=== PATIENT | female | born 1980 ===

== ENCOUNTER 2017-04-06 05:26 | Emergency (ER) | payer MEDICAID, OTHER ==
--- NOTE | 2017-04-06 06:14 | C.PDOC ---
Time Seen by Provider: 04/06/17 05:47 Chief Complaint (Nursing): Lower Extremity Problem/Injury Past Medical History Vital Signs: Last Vital Signs Temp 97.4 F L 04/06/17 05:31 Pulse 79 04/06/17 05:31 Resp 18 04/06/17 05:31 BP 104/67 04/06/17 05:31 Pulse Ox 98 04/06/17 05:31 - Social History Hx Alcohol Use: No Hx Substance Use: No - Immunization History Hx Tetanus Toxoid Vaccination: No Hx Influenza Vaccination: No Hx Pneumococcal Vaccination: No ED Course And Treatment O2 Sat by Pulse Oximetry: 98 Disposition - Disposition
--- NOTE | 2017-04-06 06:16 | C.PDOC ---
History Of Present Illness 36 y/o female presents to ED with complaints of left lower leg lump since 5 days ago. Patient states she has been applying warm compress to the lump for 3 days. Patient denies fever, chills, nausea, vomiting, change in sensation or any other complaints at this time. Time Seen by Provider: 04/06/17 05:47 Chief Complaint (Nursing): Lower Extremity Problem/Injury History Per: Patient History/Exam Limitations: no limitations Onset/Duration Of Symptoms: Days Current Symptoms Are (Timing): Still Present Pain Scale Rating Of: 6 Past Medical History Reviewed: Historical Data, Nursing Documentation, Vital Signs Vital Signs: Last Vital Signs Temp 97.4 F L 04/06/17 05:31 Pulse 79 04/06/17 05:31 Resp 18 04/06/17 05:31 BP 104/67 04/06/17 05:31 Pulse Ox 98 04/06/17 06:48 - Medical History PMH: No Chronic Diseases Surgical History: No Surg Hx Family History: States: No Known Family Hx - Social History Hx Alcohol Use: No Hx Substance Use: No - Immunization History Hx Tetanus Toxoid Vaccination: No Hx Influenza Vaccination: No Hx Pneumococcal Vaccination: No Review Of Systems Except As Marked, All Systems Reviewed And Found Negative. Constitutional: Negative for: Fever, Chills Gastrointestinal: Negative for: Nausea, Vomiting Musculoskeletal: Positive for: Leg Pain Skin: Negative for: Rash Neurological: Negative for: Weakness, Numbness Physical Exam - Physical Exam Appears: Non-toxic Skin: Warm, Dry, Other (1.5cm abscess (+)mild surrounding erythema. (-) flunctuance ) Head: Normacephalic Oral Mucosa: Moist Neck: Normal ROM, Supple Cardiovascular: Rhythm Regular Respiratory: Normal Breath Sounds, No Rales, No Rhonchi, No Wheezing Gastrointestinal/Abdominal: Soft, No Tenderness, No Guarding, No Rebound Extremity: Tenderness (Left lower leg), Capillary Refill (<2 seconds), Swelling Extremity: Bilateral: Normal ROM Pulses: Left Dorsalis Pedis: Normal, Right Dorsalis Pedis: Normal Neurological/Psych: Oriented x3, Normal Motor, Normal Sensation ED Course And Treatment O2 Sat by Pulse Oximetry: 98 (RA) Pulse Ox Interpretation: Normal Disposition - Disposition Referrals: Cuauhtemoc Moore MD [Medical Doctor] - Disposition: HOME/ ROUTINE Disposition Time: 06:45 Condition: GOOD Additional Instructions: APPLY WARM COMPRESSES TO THE AREA 4-5 TIMES PER DAY. Follow up with the medical doctor within 1-2 days. Return if worsened. Prescriptions: Doxycycline Hyclate 100 mg PO BID #19 cap Ibuprofen [Motrin] 600 mg PO TID #21 tab Instructions: Abscess (ED) Forms: [employer] (Syriac), Work Excuse Print Language: NAMIBIAN - Clinical Impression Clinical Impression: Abscess - PA / RN FIELD / Resident Statement MD/DO has reviewed & agrees with the documentation as recorded. - Scribe Statement The provider has reviewed the documentation as recorded by the Scribjohn Resendiz All medical record entries made by the Marbella were at my direction and personally dictated by me. I have reviewed the chart and agree that the record accurately reflects my personal performance of the history, physical exam, medical decision making, and the department course for this patient. I have also personally directed, reviewed, and agree with the discharge instructions and disposition.
[2017-04-06 07:05] VITALS: BP 117/67; PULSE 86; RESP 20; TEMP 98; O2SAT 100
== END 2017-04-06 06:59 | disposition home or self-care (01) ==
LOC: C.ER 05:26
DX: L02.416 Cutaneous abscess of left lower limb (principal)

== ENCOUNTER 2017-04-20 21:06 | Emergency (ER) | payer OTHER ==
[2017-04-20 21:35] VITALS: BP 143/85; PULSE 82; RESP 20; TEMP 98.2; O2SAT 100
[2017-04-20] MEDS ORDERED: Bacitracin 500 Units/gm Oint Foilpak UD ONE (22:13)
--- NOTE | 2017-04-20 22:19 | C.PDOC ---
History Of Present Illness 36 year old female presents to the ER with a complaint of a wound to the left lower leg for the past 3 weeks. Patient was seen on 04/06/17 for an abscess to the left lower leg, patient was instructed to follow up PMD for wound chest in 1 -2 days but has not followed up. Patient states she finished the antibiotics prescribed, she notes the wound is now draining and appears open. Denies fever, weakness, or numbness. Time Seen by Provider: 04/20/17 21:53 Chief Complaint (Nursing): Abnormal Skin Integrity History Per: Patient History/Exam Limitations: no limitations Onset/Duration Of Symptoms: Days Current Symptoms Are (Timing): Still Present Quality Of Symptoms: Draining Recent travel outside of the [place]: No Past Medical History Reviewed: Historical Data, Nursing Documentation, Vital Signs Vital Signs: Last Vital Signs Temp 98.2 F 04/20/17 21:32 Pulse 82 04/20/17 21:32 Resp 20 04/20/17 22:34 BP 143/85 04/20/17 21:32 Pulse Ox 100 04/21/17 01:31 - Medical History PMH: No Chronic Diseases Surgical History: No Surg Hx Family History: States: Unknown Family Hx - Social History Hx Alcohol Use: No Hx Substance Use: No - Immunization History Hx Tetanus Toxoid Vaccination: No Hx Influenza Vaccination: No Hx Pneumococcal Vaccination: No Review Of Systems Constitutional: Negative for: Fever, Chills Skin: Positive for: Other (Draining abscess) Neurological: Negative for: Weakness, Numbness Physical Exam - Physical Exam Appears: Non-toxic, No Acute Distress Skin: Warm, Dry Head: Atraumatic, Normacephalic Eye(s): bilateral: Normal Inspection Extremity: Other (Nonhealing dime sized open wound to left lower leg with localized erythema. No proximal or distal streaking) Neurological/Psych: Oriented x3, Normal Speech, Normal Motor, Normal Sensation ED Course And Treatment O2 Sat by Pulse Oximetry: 100 (Room air) Pulse Ox Interpretation: Normal Progress Note: Wound cleansed and irrigated, bacitracin and dressing applied. Patient started on keflex and bacitracin and instructed to follow up with PMD. Disposition Counseled Patient/Family Regarding: Need For Followup, Rx Given - Disposition Referrals: Maureen Moore MD [Staff Provider] - Disposition: HOME/ ROUTINE Disposition Time: 22:15 Condition: STABLE Additional Instructions: Increase PO fluids Return to ER if worse Prescriptions: Cephalexin [Keflex] 1,000 mg PO BID #28 capsule Mupirocin 2% Ointment [Bactroban Ointment] 1 appl TP BID #1 tube Sulfamethoxazole/Trimethoprim [Bactrim DS 800 mg-160 mg] 1 tab PO BID #14 tab Instructions: Abscess (ED) Forms: [employer] (Belarusian) Print Language: SCOTTISH - Clinical Impression Clinical Impression: Leg abscess - Scribe Statement The provider has reviewed the documentation as recorded by the Scribjohn Nelson All medical record entries made by the Rubenibjohn were at my direction and personally dictated by me. I have reviewed the chart and agree that the record accurately reflects my personal performance of the history, physical exam, medical decision making, and the department course for this patient. I have also personally directed, reviewed, and agree with the discharge instructions and disposition.
[2017-04-20] MEDS ORDERED: Bacitracin Ointment 30 GM TUBE TOP STA (22:30)
== END 2017-04-20 22:34 | disposition home or self-care (01) ==
LOC: C.ER 21:06
DX: L02.416 Cutaneous abscess of left lower limb (principal)